=== PATIENT | female | born 1930 | race Caucasian/White ===

== ENCOUNTER 2019-08-12 17:20 | Inpatient (IN) | payer MEDICARE, OTHER ==
[2019-08-12] MEDS ORDERED: Nystatin Cream 15 GM TUBE TOP PRN (19:04)
[2019-08-12 20:16] VITALS: BMI 38.4
[2019-08-12] MEDS: Mometasone/Formoterol 60 PUFF AER INH SCH (20:50)
[2019-08-12] MEDS: Simvastatin 5 MG TAB PO SCH (20:50)
[2019-08-12] MEDS: Lubiprostone 24 MCG CAP PO SCH (20:50)
[2019-08-12] MEDS: cycloSPORINE 0.05% Ophthalmic Droperette EA EYE SCH (20:50)
[2019-08-12] MEDS: Triamcinolone 0.1% Cream 15 GM TUBE TOP SCH (20:50)
[2019-08-12] MEDS: DULoxetine 30 MG CAP PO SCH (20:50)
[2019-08-12] MEDS: Furosemide 40 MG TAB PO SCH (20:50)
[2019-08-12] MEDS: Pregabalin 75 MG CAP PO SCH (21:04)
[2019-08-12] MEDS: Acetaminophen 500 MG TAB PO PRN (21:15)
[2019-08-13] MEDS: Acetaminophen 500 MG TAB PO PRN ×2 (05:42→11:06)
[2019-08-13] MEDS: Levothyroxine Sodium 100 MCG TAB PO SCH (05:42)
[2019-08-13 06:58] LABS: ALT (SGPT) 13 U/L (8-55); AST (SGOT) 32 U/L (5-34); Alkaline Phosphatase 83 U/L (40-110); Anion Gap 15 mmol/L (10-20); BUN (Urea Nitrogen) 20 mg/dL (9.8-20.1); Bilirubin, Total 0.5 mg/dL (0.2-1.2); Calc. Creatinine Clearance 59 mL/min (70-130); Calcium 8.3 mg/dL (7.8-10.44); Carbon Dioxide 32 mmol/L (23-31); Chloride 100 mmol/L (98-107); Estimated GFR-MDRD 54; Globulin 3.5 g/dL (2.4-3.5); Glucose 115 mg/dL (83-110); Potassium 3.4 mmol/L (3.5-5.1); Protein, Total 6.5 g/dL (6.0-8.3); Sodium 144 mmol/L (136-145)
[2019-08-13 07:03] LABS: #Eosinphils 0.1 thou/uL (0.0-0.7); #Lymphocytes 1.3 thou/uL (1.20-3.40); #Monocytes 0.6 thou/uL (0.11-0.59); #Neutrophils 2.6 thou/uL (1.40-6.50); %Eosinophils 2.7 % (0.0-10.0); %Lymphocytes 27.5 % (21.0-51.0); %Monocytes 12.4 % (0.0-10.0); %Neutrophils 56.4 % (42.0-75.0); Basophilic Stippling SLIGHT = 1-2 cells (100X) (None Seen); Hemoglobin 11.6 g/dL (12.0-16.0); MDiff Complete? YES; Mean Corpuscular HGB CONC 28.3 g/dL (32.0-36.0); Mean Corpuscular Hemoglobin 24.5 pg (27.0-31.0); Mean Corpuscular Volume 86.4 fL (78.0-98.0); Mean Platelet Volume 9.8 fL (7.4-10.4); Platelet Count 101 thou/uL (130-400); Platelet Morphology Comment Appears Decreased; RBC Distribution Width 18.6 % (11.5-14.5); Red Blood Cell (RBC) Count 4.75 mill/uL (4.20-5.40); White Blood Cell (WBC) Count 4.6 thou/uL (4.8-10.8)
[2019-08-13] MEDS: Losartan Potassium 50 MG TAB PO SCH (08:03)
[2019-08-13] MEDS: Aspirin 81 mg Enteric Coated Tablet PO SCH (08:04)
[2019-08-13] MEDS: Furosemide 40 MG TAB PO SCH ×2 (08:04→21:11)
[2019-08-13] MEDS: Pregabalin 75 MG CAP PO SCH ×2 (08:04→21:08)
[2019-08-13] MEDS: Folic Acid 1 MG TAB PO SCH (08:04)
[2019-08-13] MEDS: Oxybutynin 5 MG TAB PO SCH (08:04)
[2019-08-13] MEDS: Lubiprostone 24 MCG CAP PO SCH ×2 (08:06→21:13)
[2019-08-13] MEDS: Mometasone/Formoterol 60 PUFF AER INH SCH ×2 (08:07→21:12)
[2019-08-13] MEDS: Triamcinolone 0.1% Cream 15 GM TUBE TOP SCH ×2 (08:08→21:14)
[2019-08-13] MEDS: cycloSPORINE 0.05% Ophthalmic Droperette EA EYE SCH ×2 (08:08→21:13)
[2019-08-13] MEDS ORDERED: Potassium Chloride 20 MEQ TAB PO SCH (09:15)
[2019-08-13] MEDS ORDERED: Dextrose 50% Abboject 50 ML SYRINGE SLOW IVP PRN (09:50)
[2019-08-13] MEDS ORDERED: Dextrose 5% in Water 1,000 ML IV PRN (09:50)
[2019-08-13] MEDS ORDERED: Enoxaparin Sodium 40 MG/0.4 ML SYRINGE SC SCH (17:45)
[2019-08-13] MEDS: Dicyclomine 20 MG TAB PO PRN (17:47)
[2019-08-13] MEDS: HumaLOG 300 UNITS/3 ML VIAL SC PRN (18:00)
[2019-08-13] MEDS: Simvastatin 5 MG TAB PO SCH (21:10)
[2019-08-13] MEDS: DULoxetine 30 MG CAP PO SCH (21:11)
[2019-08-14] MEDS: Dicyclomine 20 MG TAB PO PRN ×2 (01:29→08:45)
[2019-08-14] MEDS: Levothyroxine Sodium 100 MCG TAB PO SCH (05:04)
[2019-08-14] MEDS: Acetaminophen 500 MG TAB PO PRN ×3 (08:45→20:06)
[2019-08-14] MEDS: Aspirin 81 mg Enteric Coated Tablet PO SCH (08:45)
[2019-08-14] MEDS: Pregabalin 75 MG CAP PO SCH ×2 (08:45→20:05)
[2019-08-14] MEDS: Furosemide 40 MG TAB PO SCH (08:45)
[2019-08-14] MEDS: Mometasone/Formoterol 60 PUFF AER INH SCH ×2 (08:45→20:30)
[2019-08-14] MEDS: Oxybutynin 5 MG TAB PO SCH (08:45)
[2019-08-14] MEDS: cycloSPORINE 0.05% Ophthalmic Droperette EA EYE SCH ×2 (08:45→20:06)
[2019-08-14] MEDS: Lubiprostone 24 MCG CAP PO SCH ×2 (08:45→20:04)
[2019-08-14] MEDS: Folic Acid 1 MG TAB PO SCH (08:45)
[2019-08-14] MEDS: Enoxaparin Sodium 40 MG/0.4 ML SYRINGE SC SCH (08:45)
[2019-08-14] MEDS: Losartan Potassium 50 MG TAB PO SCH (09:54)
[2019-08-14] MEDS: Triamcinolone 0.1% Cream 15 GM TUBE TOP SCH ×2 (09:57→20:30)
[2019-08-14 10:49] LABS: Anion Gap 17 mmol/L (10-20)
[2019-08-14 10:54] LABS: ALT (SGPT) 13 U/L (8-55); AST (SGOT) 34 U/L (5-34); Alkaline Phosphatase 78 U/L (40-110); BUN (Urea Nitrogen) 36 mg/dL (9.8-20.1); Bilirubin, Total 0.5 mg/dL (0.2-1.2); Calc. Creatinine Clearance 33 mL/min (70-130); Carbon Dioxide 29 mmol/L (23-31); Chloride 99 mmol/L (98-107); Estimated GFR-MDRD 27; Globulin 3.4 g/dL (2.4-3.5); Glucose 120 mg/dL (83-110); Potassium 4.5 mmol/L (3.5-5.1); Protein, Total 6.4 g/dL (6.0-8.3); Sodium 140 mmol/L (136-145)
[2019-08-14 10:55] LABS: #Eosinphils 0.1 thou/uL (0.0-0.7); #Lymphocytes 1.5 thou/uL (1.20-3.40); #Monocytes 0.6 thou/uL (0.11-0.59); #Neutrophils 4.9 thou/uL (1.40-6.50); %Basophils 0.4 % (0.0-1.0); %Eosinophils 1.4 % (0.0-10.0); %Lymphocytes 20.9 % (21.0-51.0); %Monocytes 8.5 % (0.0-10.0); %Neutrophils 68.8 % (42.0-75.0); Hemoglobin 11.7 g/dL (12.0-16.0); Mean Corpuscular HGB CONC 27.5 g/dL (32.0-36.0); Mean Corpuscular Hemoglobin 24.3 pg (27.0-31.0); Mean Corpuscular Volume 88.5 fL (78.0-98.0); Mean Platelet Volume 8.9 fL (7.4-10.4); Platelet Count 135 thou/uL (130-400); White Blood Cell (WBC) Count 7.1 thou/uL (4.8-10.8)
[2019-08-14 10:58] LABS: MDiff Complete? YES; Polychromasia SLIGHT = 2-3 cells (100X) (0-2/hpf); Tear Drops SLIGHT = 2-5 cells (100X) (0-1/hpf)
[2019-08-14] MEDS ORDERED: Sodium Chloride 0.9% 500 ML IV SCH (12:30)
--- NOTE | 2019-08-14 19:15 | RAD ---
PORTABLE CHEST: 08/14/19 An AP portable film at 1049 is compared with a 08/06/19 study. There is vascular congestion throughout as before, presumably from congestive heart failure. Mild car diomegaly is about the same as previously. I would question whether the right upper lobe is a little denser than it was previously or not. The patient is turned a little more which could accentuate this , but the possibility of a superimposed pneumonia is not completely excluded. IMPRESSION: 1. Continuing congestive changes as on the 08/05 study. 2. Question of denser infiltrate in the right upper lobe. Preliminary findings taken to the floor at approximately 1140. POS: HOME
[2019-08-14] MEDS ORDERED: Furosemide 20 MG/2 ML VIAL SLOW IVP SCH (20:00)
[2019-08-14] MEDS: DULoxetine 30 MG CAP PO SCH (20:04)
[2019-08-14] MEDS: Simvastatin 5 MG TAB PO SCH (20:04)
[2019-08-14] MEDS: Dextrose 5 %-0.45 % NaCl 1,000 ML IV SCH (20:14)
[2019-08-15] MEDS: Levothyroxine Sodium 100 MCG TAB PO SCH (05:06)
[2019-08-15 06:18] LABS: Hemoglobin 11.8 g/dL (12.0-16.0); Mean Corpuscular HGB CONC 28.1 g/dL (32.0-36.0); Mean Corpuscular Hemoglobin 24.3 pg (27.0-31.0); Mean Corpuscular Volume 86.6 fL (78.0-98.0); Platelet Count 121 thou/uL (130-400); RBC Distribution Width 18.7 % (11.5-14.5); Red Blood Cell (RBC) Count 4.85 mill/uL (4.20-5.40); White Blood Cell (WBC) Count 8.4 thou/uL (4.8-10.8)
[2019-08-15 06:25] LABS: Anion Gap 17 mmol/L (10-20); BUN (Urea Nitrogen) 47 mg/dL (9.8-20.1); Calc. Creatinine Clearance 29 mL/min (70-130); Calcium 7.5 mg/dL (7.8-10.44); Carbon Dioxide 28 mmol/L (23-31); Chloride 99 mmol/L (98-107); Estimated GFR-MDRD 24; Glucose 150 mg/dL (83-110); Potassium 3.9 mmol/L (3.5-5.1); Sodium 140 mmol/L (136-145)
[2019-08-15 06:43] LABS: Anisocytosis SLIGHT = 6-15 cells (100X) (0-5/hpf); Band 10 % (5-11); Lymphocytes 17 % (21-51); MDiff Complete? YES; Monocytes 5 % (0-10); Neutrophil 68 % (42-75); Nucleated RBC 1 % (0); Platelet Morphology Comment Appears Decreased
[2019-08-15 07:51] VITALS: BP 114/69; TEMP 98.4
[2019-08-15] MEDS: Aspirin 81 mg Enteric Coated Tablet PO SCH (08:48)
[2019-08-15] MEDS: Lubiprostone 24 MCG CAP PO SCH (08:48)
[2019-08-15] MEDS: Pregabalin 75 MG CAP PO SCH (08:48)
[2019-08-15] MEDS: Enoxaparin Sodium 40 MG/0.4 ML SYRINGE SC SCH (08:48)
[2019-08-15] MEDS: Losartan Potassium 50 MG TAB PO SCH (08:51)
[2019-08-15] MEDS: Oxybutynin 5 MG TAB PO SCH (08:52)
[2019-08-15] MEDS: Acetaminophen 500 MG TAB PO PRN (08:52)
[2019-08-15] MEDS: Folic Acid 1 MG TAB PO SCH (08:52)
[2019-08-15] MEDS: Triamcinolone 0.1% Cream 15 GM TUBE TOP SCH (08:54)
[2019-08-15] MEDS: cycloSPORINE 0.05% Ophthalmic Droperette EA EYE SCH (08:54)
[2019-08-15] MEDS ORDERED: Furosemide 20 MG/2 ML VIAL SLOW IVP SCH (09:00)
[2019-08-15] MEDS: Mometasone/Formoterol 60 PUFF AER INH SCH (09:58)
[2019-08-15] MEDS: Dextrose 5 %-0.45 % NaCl 1,000 ML IV SCH (10:23)
[2019-08-15] MEDS: HumaLOG 300 UNITS/3 ML VIAL SC PRN (13:00)
--- NOTE | 2019-08-15 14:44 | RAD ---
PORTABLE CHEST: 08/15/19 An AP portable film at 0822 is compared with the 08/13 study. Prominence of the vasculature is still present as before suggesting congestive change. There also srinivas ears to be a small amount of fluid in the minor fissure. Today's study better demonstrates that there is a more focal right upper lobe density that is presumed to be pneumonia. What part of the other ch anges in the lungs is pneumonia versus edema is up for discussion. Overall, any improvement since yes terday is minimal. The heart size is unchanged. IMPRESSION: 1. Findings suggestive of diffuse congestive changes. 2. Presumed right upper lobe pneumonia. Other infiltrative changes in the lungs could be either infection or edema. Preliminary report prepared to take to the floor at approximately 1015 on 08/15/19. POS: HOME
--- NOTE | 2019-08-15 22:25 | DIS ---
DATE OF ADMISSION: 08/12/2019 DATE OF DISCHARGE: 08/15/2019 ATTENDING PHYSICIAN: Dr. Higinio Chen with Dr. Mary Ann Coughlin covering August 13 through August 15, 2019. ADMISSION DIAGNOSES: 1. COVID-19. 2. Acute exacerbation of congestive heart failure. 3. Type 2 diabetes. 4. Hypertension. 5. Hypothyroidism. 6. Obesity hypoventilation syndrome. DISCHARGE DIAGNOSES: 1. COVID-19. 2. Acute exacerbation of congestive heart failure. 3. Type 2 diabetes. 4. Hypertension. 5. Hypothyroidism. 6. Obesity hypoventilation syndrome. PROCEDURES: 1. Chest x-ray on August 15, 2019 with findings suggesting diffuse congestive changes. Presumed right upper lobe pneumonia. 2. August 13 chest x-ray shows continuing congestive changes and a question of denser infiltrate in the right upper lobe. The second chest x-ray is as dictated. HISTORY AND PHYSICAL: please see documentation from Dr. Higinio Chen from the date of admission. CORRECTION COURSE: Ms. Stacy Crockett is an 89-year-old female, assisted living resident of [place], who was admitted to [facility] on August 03 and tested positive for COVID-19. Her hospital course included a five-day treatment with Remdesivir as well as empiric treatment for possible bacterial pneumonia with Levaquin, which was discontinued prior to her transfer. She has a history of COPD and congestive heart failure and had acute congestive heart failure exacerbation during that hospitalization, which was treated aggressively, and her B type natriuretic peptide was up to 1500 on the day of her admission. Her condition stabilized and she was transitioned to oral diuretics, but was still requiring 2 L of oxygen and needed physical, occupational, and speech therapy and was transferred to our facility 08/12/19. She was initially hard of hearing and was fairly deconditioned. The patient showed decline in mental status and appeared more lethargic over the past 24 to 48 hours. She also had an increased O2 requirement and transitioned from 2 L to a Ventimask prior to her transfer to maintain her sats of 92%. Her lab work was suggestive of acute kidney injury with a bump in her BUN and creatinine from baseline. However, her B type natriuretic peptide did not elevate and the patient had decreased urine output. Due to the COVID precautions, we have been unable to follow daily weights. The patient was felt to be dehydrated and had low blood pressure in the context of high fever on August 13. She received 500 mL normal saline bolus and her mental status improved. However, her respiratory status declined. Her chest x-ray showed congestive changes. She was given 20 mg of Lasix IV last p.m. and this morning had further increased respiratory distress and increase in lethargy. She has been unable to perform in any skilled rehab. She also has the development of possible right upper lobe infiltrate that may be bacterial in origin and I was going to start treatment on that, but awaited so that we can get a specialist's opinion. I made a call to [facility] to accept the patient back for higher level of care. However, due to her current respiratory status, Dr. Quan felt more information was needed and requested an ABG. We do not have the ability to get arterial blood gas at our facility as we do not have a respiratory therapist. Therefore, she recommended transfer to the emergency department so that we can better define her disposition and placement at the higher level of care facility in [place]. The patient has been transferred to the emergency department, currently under the care of the ED attending, Dr. Escobedo. At time of transfer, temperature 98.4, pulse 72, respirations 20, 93% on 10 L Ventimask. The patient is drowsy, but arousable, non-oriented, she is in no apparent distress. Chest with coarse breath sounds and slight wheezing to the left lung base anteriorly. Posteriorly cannot obtain an accurate exam. Abdomen, positive bowel sounds in all four quadrants. Soft, nontender, and nondistended. No masses, guarding, or rebound tenderness. Extremities, no cyanosis, clubbing, or edema. Dark urine present in the wick [employer]. DISPOSITION: Transferred to [facility] Emergency Department at the [facility]. Job ID: [id number] MTDD
--- NOTE | 2019-08-24 21:18 | PQF ---
eliezer Crockett KRISTEL DO [id number] CLINICAL DOCUMENTATION CLARIFICATION FORM: POST DISCHARGE Addendum to original discharge summary date: ____ Late entry note date: __ DATE: 08/12/2019 ATTN:TRISTA DUKES DO Please exercise your independent, professional judgment in responding to the clarification form. Clinical indicators are provided on the bottom of this form for your review Please check appropriate box(s): HEART FAILURE: TYPE: [ ] Systolic / HFrEF [ ] Diastolic / HFpEF [ ] Combined Systolic / Diastolic [ ] Other diagnosis [ ] Unable to determine For continuity of documentation, please document condition throughout progress notes and discharge summary. Thank You. CLINICAL INDICATORS - SIGNS / SYMPTOMS / LABS - Acute exacerbation of congestive heart failure- , 08/14, TRISTA DUKES DO - Congestive changes and a question of denser infiltrate in the right upper lobe- , 08/14, TRISTA DUKES DO - presumably from congestive heart failure--chest X-ray Arnaldo Diaz MD - mild cardiomegaly is about the same as previously- -chest X-ray Arnaldo Diaz MD - BNP: 107H on 08/12, 114.4H on 08/14- Laboratory report RISKS: - Hypertension- , 08/14, TRISTA DUKES DO - Advanced age :89 TREATMENTS: - chest X-ray Arnaldo Diaz MD - Furosemide.IV- 08/14 (This form is maintained as a part of the permanent medical record) 2014 [employer] All Rights Reserved Gabrielle [email or web address]
== END 2019-08-15 17:30 | disposition short-term general hospital (02) | DRG 178 ==
LOC: BURMED 17:20
PROVIDERS: ADMIT Family Medicine; ATTEND Family Medicine
PROC: 8E0ZXY6 Isolation (ICD-10-PCS; principal; 2019-08-12)
DX: U07.1 COVID-19 (principal); E66.2 Morbid (severe) obesity with alveolar hypoventilation; N17.9 Acute kidney failure, unspecified; E11.9 Type 2 diabetes mellitus without complications; I50.9 Heart failure, unspecified; I11.0 Hypertensive heart disease with heart failure; E03.9 Hypothyroidism, unspecified; J44.9 Chronic obstructive pulmonary disease, unspecified; R53.81 Other malaise; E87.6 Hypokalemia; I25.10 Atherosclerotic heart disease of native coronary artery without angina pectoris; E86.0 Dehydration; Z68.38 Body mass index [BMI] 38.0-38.9, adult
CPT/HCPCS: 36415; 36416; 71045; 80048; 80053; 83880; 85025; 94664; J1650; J1940; J7620

== ENCOUNTER 2019-08-15 14:24 | Emergency (ER) | payer MEDICARE, OTHER ==
[2019-08-15 15:34] LABS: Hemoglobin 11.4 g/dL (12.0-16.0); Mean Corpuscular HGB CONC 28.7 g/dL (32.0-36.0); Mean Corpuscular Hemoglobin 24.8 pg (27.0-31.0); Mean Corpuscular Volume 86.4 fL (78.0-98.0); Mean Platelet Volume 9.2 fL (7.4-10.4); Platelet Count 126 thou/uL (130-400); RBC Distribution Width 19.5 % (11.5-14.5); Red Blood Cell (RBC) Count 4.61 mill/uL (4.20-5.40); White Blood Cell (WBC) Count 10.4 thou/uL (4.8-10.8)
[2019-08-15 15:44] LABS: ALT (SGPT) 14 U/L (8-55); AST (SGOT) 40 U/L (5-34); Albumin 2.7 g/dL (3.4-4.8); Alkaline Phosphatase 78 U/L (40-110); Anion Gap 16 mmol/L (10-20); BUN (Urea Nitrogen) 50 mg/dL (9.8-20.1); Bilirubin, Total 0.5 mg/dL (0.2-1.2); Calc. Creatinine Clearance 0 mL/min (70-130); Calcium 7.3 mg/dL (7.8-10.44); Carbon Dioxide 26 mmol/L (23-31); Chloride 101 mmol/L (98-107); Estimated GFR-MDRD 28; Glucose 133 mg/dL (83-110); Potassium 4.2 mmol/L (3.5-5.1); Protein, Total 5.7 g/dL (6.0-8.3); Sodium 139 mmol/L (136-145)
[2019-08-15 15:50] LABS: Band 37 % (5-11); Basophilic Stippling SLIGHT = 1-2 cells (100X) (None Seen); Hypochromia SLIGHT = 6-15 cells (100X) (0-5/hpf); Lymphocytes 8 % (21-51); MDiff Complete? YES; Macrocytosis MODERATE=16-30 cells (100X) (0-5/hpf); Microcytosis SLIGHT = 6-15 cells (100X) (0-5/hpf); Monocytes 11 % (0-10); Neutrophil 43 % (42-75); Reactive Lymphocytes 1 % (0-10)
[2019-08-15] MEDS ORDERED: Levofloxacin 500 mg/D5W 100 ml Premix Bag ONE (15:54)
--- NOTE | 2019-08-16 09:08 | RAD ---
PORTABLE CHEST: DATE: 08/15/2019. FINDINGS: An AP portable film at 1536 is compared is compared with the film done at 0822 earlier the same day. The area around the right upper lobe seems to be getting slightly denser. The other areas were appr oximately the same still showing congestion of vessels. It is difficult to assess the left base. Th e heart size is about the same as before. IMPRESSION: Some increase in density in the right upper lobe. Congestive changes elsewhere. The findings are pr esumably a combination of pneumonia and congestive change. POS: HOME
== END 2019-08-15 16:57 | disposition short-term general hospital (02) ==
LOC: BURERS 14:24
DX: R06.00 Dyspnea, unspecified (principal); R53.1 Weakness; I25.10 Atherosclerotic heart disease of native coronary artery without angina pectoris; I11.0 Hypertensive heart disease with heart failure; I50.9 Heart failure, unspecified; J44.9 Chronic obstructive pulmonary disease, unspecified; E03.9 Hypothyroidism, unspecified; E11.9 Type 2 diabetes mellitus without complications
CPT/HCPCS: 71045; 83605; 83880; 84484; 87040; 93005; 96365; J1956